=== PATIENT | female | born 1950 | race Caucasian/White ===

== ENCOUNTER 2023-11-06 12:11 | Inpatient (IN) | payer MEDICARE, OTHER, SELFPAY ==
[2023-11-06] VITALS (10 sets, daily range): BP systolic 103–165; BP diastolic 47–76; PULSE 81–104; RESP 16–28; TEMP 36.7–39.3; O2SAT 89–97; BMI 41.3; BMI 39.4
--- NOTE | 2023-11-06 12:25 | EX.ED.DYSGE1 ---
HPI History of Present Illness Chief Complaint: Complaint Detail of Chief Complaint: Dysuria Informant: patient Narrative Narrative: Patient presents with dysuria and frequency that started last evening. She states that she is visiting from [place] family here. She gets UTIs every few months. She has had no vomiting. She has had subjective fever and complains of chills. Denies abdominal pain. She does complain of some low back pain. [facility] Medical History (Updated 11/06/23 @ 15:41 by Margie Anderson) Anemia Chronic pain Former smoker GERD (gastroesophageal reflux disease) Hearing loss, left Hearing loss, right Hypertension Osteoporosis Home Medications carvedilol 12.5 mg tablet 12.5 mg PO DAILY 11/06/23 [History Last Taken 11/05/23] doxepin 10 mg capsule 10 mg PO QHS PRN sleep 11/06/23 [History Last Taken 11/05/23] duloxetine 60 mg capsule,delayed release 60 mg PO DAILY 11/06/23 [History Last Taken 11/05/23] furosemide 20 mg tablet 20 mg PO DAILY 11/06/23 [History Last Taken 11/05/23] gabapentin 800 mg tablet 800 mg PO Q12H 11/06/23 [History Last Taken 11/05/23] methocarbamol 750 mg tablet 750 mg PO Q8H PRN muscle spasm 11/06/23 [History Last Taken 11/05/23] nystatin 100,000 unit/gram topical cream 1 applic topical BID 11/06/23 [History Last Taken 11/05/23] oxycodone 10 mg tablet 10 mg PO Q4H PRN pain 11/06/23 [History Last Taken 11/05/23] pantoprazole 40 mg tablet,delayed release 40 mg PO QHS 11/06/23 [History Last Taken 11/05/23] pramipexole 0.25 mg tablet 0.25 mg PO BID 11/06/23 [History Last Taken 11/05/23] Allergy/AdvReac Type Severity Reaction Status Date / Time No Known Allergies Allergy Verified 11/06/23 12:14 Social History Smoking Status: Never smoker ROS ROS ED Review of Systems ROS Unobtainable: other Constitutional Constitutional ED: Reports chills, fever(s) and lethargy; Denies sweats or weight loss Eyes Eyes: Denies blurry vision, change in vision or diplopia ENT ENT ED: Denies rhinorrhea or sore throat Cardiovascular Cardiovascular: Denies chest pain, orthopnea or racing heartbeat Respiratory/Chest Respiratory/Chest: Denies cough, dyspnea, dyspnea on exertion, orthopnea or sputum Gastrointestinal Gastrointestinal: Denies abdominal pain, diarrhea, nausea or vomiting Genitourinary Genitourinary ED: Reports dysuria and urinary frequency; Denies hematuria Musculoskeletal Musculoskeletal: Denies arthralgias, back pain, myalgias or neck pain Integumentary Denies abscess, Abrasions or rash Neurologic Neurologic: Denies headache(s) or weakness Psychiatric Psychiatric: Denies anxiety, depression or suicidal thoughts Endocrine Endocrinology: Denies polydipsia, polyphagia or polyuria Hematologic/Lymphatic Hematologic/Lymphatic: Denies easy bleeding, easy bruising or lymphadenopathy Allergic/Immunologic Allergic/Immunologic ED: Denies mouth swelling, tongue swelling or urticaria EXAM Physical Exam Const Vital Signs: 11/06/23 12:12 11/06/23 12:42 11/06/23 12:42 Temperature 100 F H 102.8 F H 102.8 F H Temperature Source Temporal Oral Oral Pulse Rate 101 H 102 H 102 H Respiratory Rate 16 28 H 22 H Blood Pressure 165/59 H 129/69 H 129/69 H Blood Pressure Mean 94 89 89 Pulse Ox 97 97 97 Oxygen Delivery Method Room Air Room Air Room Air 11/06/23 13:40 11/06/23 13:40 Temperature 101.6 F H 101.6 F H Temperature Source Oral Oral Pulse Rate 104 H 103 H Respiratory Rate 23 H 27 H Blood Pressure 128/61 H 128/61 H Blood Pressure Mean 83 83 Pulse Ox 96 97 Oxygen Delivery Method Room Air Room Air Positive well nourished and well developed General Appearance ED: well developed and NAD HEENT Reports TM's clear and moist mucous membranes normocephalic and atraumatic; Negative for trauma or tenderness Tympanic Membrane ED: Yes TM's clear Eyes PERRL and EOMs intact bilaterally General Eye ED: Negative for pale conjunctiva or scleral icterus Neck no lymphadenopathy, supple and no JVD General: Negative for tenderness Chest Wall inspection of chest normal and palpation of chest normal Chest: Negative for tenderness Resp normal respiratory effort and clear to auscultation bilaterally Effort and Inspection: Negative for respiratory distress or pain with movement Auscultation: Negative for rhonchi, wheezes or diminished lung sounds Cardio regular rate, regular rhythm, S1 normal heart sound, S2 normal heart sound and no murmurs Peripheral Pulses: pulses 2+ throughout GI normal to inspection, nondistended, normoactive bowel sounds, soft to palpation, non-tender, non-distended and no masses Back/Spine no CVA tenderness and no thoracic nor lumbar tenderness Extremity normal to inspection General Extremety ED: Negative for edema General Extremity: Negative for edema Neuro oriented x3, CN's II-XII intact bilaterally, no sensory deficits noted and gait normal Sensorium / Orientation: awake, alert, oriented to person, oriented to place and oriented to time Motor Exam: strength 5/5 throughout and strength abnormal Psych mental status grossly normal Skin no rashes or lesions noted and no wounds MDM MDM MDM Narrative Medical decision making narrative: Patient presents with chills and rigors and urinary symptoms that started yesterday. Patient visiting from [place]. Patient presents with temp up to 102.8. IV line established. Blood cultures ordered as well as urine culture. CBC with differential white count 12.5 with hemoglobin 12.8 and platelet count of 211. Chemistries unremarkable. Urinalysis positive for 25-50 WBCs as well as +1 bacteria and positive nitrites and 500 excite esterase. COVID and flu testing also ordered. Patient was started on Rocephin 1 g IV. Lactate was elevated at 2.6. Will discuss case with hospitalist to evaluate for admission as I suspect patient may be bacteremic and early sepsis. Patient did receive a gram of Tylenol p.o. Lab Data Attestation: I reviewed the patient's lab results. Labs: Laboratory Results - last 24 hr 11/06/23 11/06/23 12:38 12:55 WBC 12.5 H RBC 4.45 Hgb 12.8 Hct 39.8 MCV 89.4 MCH 28.8 MCHC 32.2 RDW Std Deviation 45.3 H RDW Coeff of Shira 13.9 Plt Count 211 MPV 8.5 Immature Gran % (Auto) 0.600 Neut % (Auto) 85.4 H Lymph % (Auto) 9.6 L [place] % (Auto) 4.2 Eos % (Auto) 0.0 Baso % (Auto) 0.2 Absolute Neuts (auto) 10.7 H Absolute Lymphs (auto) 1.19 Nucleated RBC % 0 Sodium 136 Potassium 4.0 Chloride 104 Carbon Dioxide 29.0 Anion Gap 3 L BUN 21 H Creatinine 1.30 H Estim Creat Clear Calc 40.35 Est GFR (MDRD) Af Amer 51 L Est GFR (MDRD) Non-Af 42 L BUN/Creatinine Ratio 16.2 Glucose 175 H Lactic Acid 2.6 H* Calcium 9.0 Urine Color Yellow Urine Clarity Sl. Cloudy Urine pH 6.0 Ur Specific [place] 1.010 Urine Protein 100 H Urine Glucose (UA) Normal Urine Ketones Negative Urine Occult Blood 50 H Urine Nitrite Positive H Urine Bilirubin Negative Urine Urobilinogen Normal Ur Leukocyte Esterase 500 H Urine RBC 0-5 SEEN Urine WBC 25-50 SEEN Ur Squamous Epith Cells 0 SEEN Urine Bacteria 1+ Urine Mucus 0 SEEN Discharge Plan Dx/Rx/DC Orders Clinical Impression: Leukocytosis, Sepsis, Acute UTI, Acidosis, lactic Disposition Disposition: Acute Care [facility] Discharge Date/Time: 11/06/23 14:59
[2023-11-06] MEDS: 0.9% Normal Saline (1000mL) 1,000 ML 150 ML IV (12:38)
[2023-11-06 12:47] LABS: Absolute Lymphocyte Count 1.19 X10^3/uL (0.83-4.51); Absolute Neutrophil Count 10.7 X10^3/uL (2.0-7.7); Basophil# 0.02 X10^3/uL; Basophil% 0.2 % (0-1); Hematocrit 39.8 % (37-47); Hemoglobin 12.8 g/dL (12.0-15.0); Lymphocyte # 1.19 X10^3/ul (0.83-4.51); Lymphocyte % 9.6 % (19-41); Mean Corp Hgb Conc 32.2 g/dL (32-36); Mean Corpuscular Hgb 28.8 pg (27.0-32.0); Mean Corpuscular Volume 89.4 fL (81-99); Mean Platelet Vol. 8.5 fl (6.2-12.0); Monocyte# 0.52 X10^3/uL; Monocyte% 4.2 % (0-10); NRBC Flagged by Analyzer 0 % (0-5); Neutrophil # 10.66 X10^3/uL (2.7-7.7); Neutrophil % 85.4 % (47-70); Platelet Count 211 K/mm3 (150-450); RBC Distribution Width CV 13.9 % (11.6-14.6); RBC Distribution Width SD 45.3 fl (35.1-43.9); Red Blood Count 4.45 M/mm3 (4.2-5.4); White Blood Count 12.5 K/mm3 (4.4-11.0)
[2023-11-06] MEDS: Acetaminophen 500 MG Tablet 1000 MG PO (12:59)
[2023-11-06 13:00] LABS: Anion Gap 3 (5-15); BUN 21 mg/dL (7-18); BUN/Creat Ratio 16.2 RATIO (10-20); Chloride 104 mmol/L (98-107); EST Glomerular Filtration Rate 42 mL/min (>60); Est Glom Filt Rate - Afr Amer 51 mL/min (>60); Estimated Creatinine Clearance 40.35 ml/min; Glucose 175 mg/dL (74-106); Sodium Level 136 mmol/L (136-145)
[2023-11-06 13:04] LABS: Mucous, Urine 0 SEEN /hpf (<or=2+); Squamous Epithelial Cells - UA 0 SEEN /hpf (5-10)
[2023-11-06 13:05] LABS: Color, Urine Yellow (Yellow); Glucose, Dipstick Normal (Normal); Ketone-Dipstick Negative (Negative); Leukocyte Esterase-Dipstick 500 /ul (Negative); Nitrite-Dipstick Positive (Negative); Occult Blood-Urine 50 /ul (Negative); Protein-Dipstick 100 mg/dl (Negative); Urine Bilirubin Dipstick Negative (Negative); Urine Clarity Sl. Cloudy (Clear); Urine Urobilinogen Normal (Normal)
[2023-11-06 13:13] LABS: Bacteria 1+ /hpf (None Seen); Red Blood Cells-Urine 0-5 SEEN /hpf (0-5); White Blood Cells 25-50 SEEN /hpf (0-5)
[2023-11-06 13:44] LABS: Lactic Acid 2.6 mmol/L (0.4-1.9)
--- NOTE | 2023-11-06 13:45 | PCM.HP.STD ---
HPI - General General Date of Admission: 11/06/23 Date of Service: 11/06/23 Chief Complaint: Dysuria HPI Narrative CAROLEE GAMBOA, is a 73 F with past medical history of hypertension, multiple joint osteoarthritis who presents with dysuria since 1 day with associated chills and subjective fever. Her medications include carvedilol, doxepin, furosemide, gabapentin, methocarbamol, nystatin, oxycodone, pantoprazole, pramipexole. She and her are visiting their granddaughter in [place] from [place]. Most of her care is in [place]. Next they are headed to [place]. Since yesterday she has been noticing dysuria, and progressive fatigue. There is associated left-sided flank pain. She was also febrile when she presented to the ED. She was febrile in the ED with a temperature of 102.8 F, WBC is 12.5, hemoglobin 12.8, platelet 211, UA positive for 25-50 WBCs, positive nitrite and leuk esterase. Her BUN was 21, creatinine 1.3 her lactate was 2.6 and she is being admitted for concerns regarding urosepsis and bacteremia. [facility] Medical History (Updated 11/06/23 @ 15:41 by Margie Anderson) Anemia Chronic pain Former smoker GERD (gastroesophageal reflux disease) Hearing loss, left Hearing loss, right Hypertension Osteoporosis Home Medications carvedilol 12.5 mg tablet 12.5 mg PO DAILY 11/06/23 [History Last Taken 11/05/23] doxepin 10 mg capsule 10 mg PO QHS PRN sleep 11/06/23 [History Last Taken 11/05/23] duloxetine 60 mg capsule,delayed release 60 mg PO DAILY 11/06/23 [History Last Taken 11/05/23] furosemide 20 mg tablet 20 mg PO DAILY 11/06/23 [History Last Taken 11/05/23] gabapentin 800 mg tablet 800 mg PO Q12H 11/06/23 [History Last Taken 11/05/23] methocarbamol 750 mg tablet 750 mg PO Q8H PRN muscle spasm 11/06/23 [History Last Taken 11/05/23] nystatin 100,000 unit/gram topical cream 1 applic topical BID 11/06/23 [History Last Taken 11/05/23] oxycodone 10 mg tablet 10 mg PO Q4H PRN pain 11/06/23 [History Last Taken 11/05/23] pantoprazole 40 mg tablet,delayed release 40 mg PO QHS 11/06/23 [History Last Taken 11/05/23] pramipexole 0.25 mg tablet 0.25 mg PO BID 11/06/23 [History Last Taken 11/05/23] Allergy/AdvReac Type Severity Reaction Status Date / Time No Known Allergies Allergy Verified 11/06/23 12:14 Social History Smoking Status: Never smoker ROS Constitutional Constitutional: Reports fatigue, fever(s), malaise and night sweats Eyes Eyes: Denies blurry vision, change in eye color, change in vision, discharge from eye(s), double vision, erythema, eye pain, loss of vision or other ENT HEENT: Denies abnormal hearing, dysphagia, ear pain, epistaxis, headache(s), hearing loss, nasal congestion, nasal discharge, post nasal drip, sinus pressure, sore throat or other Cardiovascular Cardiovascular: Denies chest pain, claudication, dyspnea on exertion, edema, lightheadedness, orthopnea, palpitations, paroxysmal nocturnal dyspnea, rapid heart rate, syncope or other Respiratory/Chest Respiratory/Chest: Denies cough, dyspnea, excessive phlegm production, hemoptysis, productive cough, shortness of breath at rest, shortness of breath with exertion, wheezing or other Gastrointestinal Gastrointestinal: Denies abdominal pain, coffee ground emesis, constipation, diarrhea, dyspepsia, hematemesis, hematochezia, loose stools, melena, nausea, vomiting or other Genitourinary Genitourinary: Reports burning urination, difficulty urinating and dysuria Musculoskeletal Musculoskeletal: Reports arthralgias; Denies back pain, joint pain, joint stiffness, joint swelling, myalgias, neck pain or other Neurologic Neurologic: Denies abnormal gait, abnormal speech, confusion, disequilibrium, dizziness, focal weakness, headache(s), numbness, paresthesias, seizure-like activity, seizures, syncope, tingling, tremor(s) or other Psychiatric Psychiatric: Denies anxiety, depression, homicidal ideation, suicidal ideation or other Vital Signs Vital Signs Vital Signs: 11/06/23 12:12 11/06/23 12:42 11/06/23 12:42 Temperature 100 F H 102.8 F H 102.8 F H Temperature Source Temporal Oral Oral Pulse Rate 101 H 102 H 102 H Respiratory Rate 16 28 H 22 H Blood Pressure 165/59 H 129/69 H 129/69 H Blood Pressure Mean 94 89 89 Pulse Ox 97 97 97 Oxygen Delivery Method Room Air Room Air Room Air Weight Weight: 218 lb 11.177 oz Body Mass Index (BMI) 41.3 Results Lab / Micro Data 11/06/23 12:38 11/06/23 12:38 Labs: Laboratory Results - last 24 hr 11/06/23 12:38: WBC 12.5 H, RBC 4.45, Hgb 12.8, Hct 39.8, MCV 89.4, MCH 28.8, MCHC 32.2, RDW Std Deviation 45.3 H, RDW Coeff of Shira 13.9, Plt Count 211, MPV 8.5, Immature Gran % (Auto) 0.600, Neut % (Auto) 85.4 H, Lymph % (Auto) 9.6 L, [place] % (Auto) 4.2, Eos % (Auto) 0.0, Baso % (Auto) 0.2, Absolute Neuts (auto) 10.7 H, Absolute Lymphs (auto) 1.19, Nucleated RBC % 0, Sodium 136, Potassium 4.0, Chloride 104, Carbon Dioxide 29.0, Anion Gap 3 L, BUN 21 H, Creatinine 1.30 H, Estim Creat Clear Calc 40.35, Est GFR (MDRD) Af Amer 51 L, Est GFR (MDRD) Non-Af 42 L, BUN/Creatinine Ratio 16.2, Glucose 175 H, Lactic Acid 2.6 H*, Calcium 9.0 11/06/23 12:55: Urine Color Yellow, Urine Clarity Sl. Cloudy, Urine pH 6.0, Ur Specific [place] 1.010, Urine Protein 100 H, Urine Glucose (UA) Normal, Urine Ketones Negative, Urine Occult Blood 50 H, Urine Nitrite Positive H, Urine Bilirubin Negative, Urine Urobilinogen Normal, Ur Leukocyte Esterase 500 H, Urine RBC 0-5 SEEN, Urine WBC 25-50 SEEN, Ur Squamous Epith Cells 0 SEEN, Urine Bacteria 1+, Urine Mucus 0 SEEN Assessment & Plan Assessment/Plan (1) Acute UTI: PLAN: Plan 73-year-old female presents with concerns of dysuria, fever, left-sided abdominal pain since last Tuesday. She has a history of recurrent urinary tract infections in the past. Based on her clinical presentation, urinary findings, leukocytosis that she has having complicated UTI [high-grade fever, elevated lactate, decreased p.o. intake] 1. Complicated urinary tract infection likely pyelonephritis -Continue IV ceftriaxone 1 g daily, change as per the sensitivity from urine cultures and blood cultures -Encourage p.o. hydration -IV NS 100 cc/h for 8 hours -Ultrasound abdomen and kidneys to rule out any abscesses. Would avoid CT scan at this time given the SHADI. 2. Hypertension -Will hold Lasix for now, continue carvedilol with close monitoring 3. Severe osteoarthritis, shoulder replacement -Continue home analgesia 4. SHADI -Likely related to the infection and prerenal in physiology -Continue to monitor, LR infusion as above. 5. Chronic pain: Continue home opioid therapy
[2023-11-06] MEDS: Ceftriaxone 1 GM/50 ML BAG IV (13:57)
[2023-11-06] MEDS: Phenazopyridine 95 MG Tablet 190 MG PO (13:57)
[2023-11-06] MEDS: oxyCODONE 5 MG Tablet 10 MG PO ×2 (15:56→22:41)
[2023-11-06] MEDS: Methocarbamol 750 MG Tablet PO (15:56)
[2023-11-06] MEDS: Lactated Ringers 1,000 ML 100 ML IV (16:12)
[2023-11-06] MEDS: Pramipexole Di-HCl 0.25 MG Tablet PO ×2 (16:18→22:41)
[2023-11-06] MEDS: Gabapentin 800 MG Tablet PO ×2 (16:18→22:42)
[2023-11-06 16:42] LABS: Reflex Lactate? Y
[2023-11-06 18:30] LABS: Lactic Acid 1.3 mmol/L (0.4-1.9)
[2023-11-06] MEDS: Pantoprazole Sodium 40 MG Tablet PO (22:41)
[2023-11-07] MEDS: Lactated Ringers 1,000 ML 100 ML IV ×2 (00:53→11:07)
[2023-11-07 00:55] VITALS: TEMP 37.6
[2023-11-07 04:00] VITALS: BP 129/59; PULSE 108; RESP 18; TEMP 39; O2SAT 96
[2023-11-07] MEDS: Vancomycin HCl 1,500 MG in 0.9% Normal Saline (500mL Bag) 500 ML 250 MG IV (05:18)
[2023-11-07] MEDS: Piperacil/Tazobactam 3.375 GM in 0.9% Normal Saline (50mL MB+) 50 ML IV ×3 (05:49→21:46)
[2023-11-07] MEDS: 0.9% Normal Saline (250mL Bag) 250 ML 15 ML IV (05:49)
--- NOTE | 2023-11-07 06:00 | US_ITS ---
HISTORY: Suspected pyelonephritis vs abscess. TECHNIQUE: Daniels scale and color doppler images were obtained of the kidneys. 58 images. COMPARISON: None. FINDINGS: RIGHT KIDNEY: 10.3 cm in length with a cortical thickness of 1.3 cm. Contour and echogenicity unremarkable. No hydronephrosis. No gross renal mass demonstrated. LEFT KIDNEY: 10.5 cm in length with a cortical thickness of 1.5 cm. Contour and echogenicity unremarkable. No hydronephrosis. No gross renal mass demonstrated. URINARY BLADDER: Unremarkable at 65 cc with a 5 mm wall thickness. Bilateral ureteral jets visualized. US/Kidney and Bladder IMPRESSION: Unremarkable examination of the kidneys. Electronically Signed: Amrita Fox MD at 8:43 EST ,
--- NOTE | 2023-11-07 06:03 | PCM.RX.CS ---
Consult Antibiotic Management Pharmacy has been consulted to manage selected antibiotic: Vancomycin Type of Intervention Type of Consult: New start Suspected Infection Suspected Infection: Bacteremia Microbiology Microbiology: Microbiology 11/06/23 12:38 Blood Culture (Wb) - Anticubital Left Blood Culture - Preliminary 11/06/23 12:38 Mucosa - Nose SARS-CoV-2, Influenza & RSV (PCR) - Final Dosing Weight Weight used for dosin.8 kg Estimated Creatinine Clearance Estimated Creatinine Clearance: 40 Goal Trough Goal Trough: 10-15 mcg/mL Pharmacy Plan for Drug Dosing Pharmacy Plan for Drug Dosing: Pharmacy Service will continue to monitor and adjust dosing as required. Follow-Up Labs Follow-Up Labs: Trough: Vancomycin Date/Time Labs Ordered Labs to be done on [date and time ordered]: 11/09/23 @0500
[2023-11-07 06:17] LABS: Absolute Lymphocyte Count 1.22 X10^3/uL (0.83-4.51); Absolute Neutrophil Count 12.5 X10^3/uL (2.0-7.7); Basophil# 0.04 X10^3/uL; Basophil% 0.3 % (0-1); Eosinophil# 0.01 X10^3/uL; Eosinophils% 0.1 % (0-5); Hematocrit 35.1 % (37-47); Hemoglobin 11.2 g/dL (12.0-15.0); Lymphocyte # 1.22 X10^3/ul (0.83-4.51); Lymphocyte % 8.3 % (19-41); Mean Corp Hgb Conc 31.9 g/dL (32-36); Mean Corpuscular Hgb 28.6 pg (27.0-32.0); Mean Corpuscular Volume 89.8 fL (81-99); Mean Platelet Vol. 9.6 fl (6.2-12.0); Monocyte# 0.89 X10^3/uL; NRBC Flagged by Analyzer 0 % (0-5); Neutrophil # 12.46 X10^3/uL (2.7-7.7); Neutrophil % 84.4 % (47-70); Platelet Count 197 K/mm3 (150-450); RBC Distribution Width CV 14.1 % (11.6-14.6); RBC Distribution Width SD 45.9 fl (35.1-43.9); Red Blood Count 3.91 M/mm3 (4.2-5.4); White Blood Count 14.8 K/mm3 (4.4-11.0)
[2023-11-07 06:34] LABS: International Normalized Ratio 1.2; Prothrombin Time (Protime)PT. 15.6 SECONDS (11.7-14.9)
[2023-11-07 07:01] LABS: ALB/GLOB Ratio 0.6 RATIO (0.9-2.4); AST(SGOT) 16 U/L (15-37); Alanine Aminotransfer ALT/SGPT 20 U/L (13-56); Albumin, Serum 2.7 g/dL (3.2-5.0); Alkaline Phosphatase 78 U/L (45-117); Anion Gap 6 (5-15); BUN 20 mg/dL (7-18); BUN/Creat Ratio 19.2 RATIO (10-20); Bilirubin, Direct 0.22 mg/dL (0.00-0.30); Calcium,Total 8.9 mg/dL (8.5-10.1); Chloride 105 mmol/L (98-107); Creatinine, Serum 1.04 mg/dL (0.55-1.02); EST Glomerular Filtration Rate 55 mL/min (>60); Est Glom Filt Rate - Afr Amer 66 mL/min (>60); Estimated Creatinine Clearance 49.14 ml/min; Globulin 4.2 g/dL (2.2-4.2); Glucose 164 mg/dL (74-106); Magnesium 2.1 mg/dL (1.6-2.6); Phosphorus 2.3 mg/dL (2.5-4.9); Potassium 3.5 mmol/L (3.5-5.1); Protein, Total 6.9 g/dL (6.4-8.2); Sodium Level 137 mmol/L (136-145)
[2023-11-07 10:00] VITALS: BP 121/67; PULSE 78; RESP 16; TEMP 36.9; O2SAT 93
[2023-11-07] MEDS: Gabapentin 800 MG Tablet PO ×2 (11:06→21:50)
[2023-11-07] MEDS: Nystatin Ointment 1 APPLIC TOPICAL ×2 (11:06→21:45)
[2023-11-07] MEDS: Pramipexole Di-HCl 0.25 MG Tablet PO ×2 (11:06→21:45)
[2023-11-07] MEDS: oxyCODONE 5 MG Tablet 10 MG PO ×3 (11:06→20:24)
[2023-11-07] MEDS: Carvedilol 12.5 MG Tablet PO (11:06)
[2023-11-07 11:45] LABS: Hemoglobin A1c 6.5 % (3.8-5.6)
--- NOTE | 2023-11-07 11:50 | CASEMGMT ---
RN CM Face to Face with patient for initial transition planning/care coordination assessment. RN CM introduced self and role at [facility]. Patient sitting in chair, alert and oriented. Patient willing to participate in assessment and is able to answer all questions appropriately. Care providers, pharmacy, and demographics verified. Patient wishes to discharge home, denies need for home health at this time. Patient states she has no further needs or concerns at this time. CM to follow for discharge planning needs that may arise. PCP: Sharon Del Castillo Specialists: none Preferred Pharmacy: [facility] [employer], [facility] Insurance: Sandra RODRIGUEZ Prescription Benefit: AARLenin Living Will/HPOA: yes, Khris Morrell LNOK: Living Arrangements: Patient is visiting area and currently staying at [facility]. Plan is for patient to fly back to [place] to stay with daughter till December and then travel back to [place]. Transportation: DME/HHC: Patient has walker and pulse ox. Will monitor for home oxygen, prefers [employer] if needed. Disposition Plan: Patient to discharge with family support and follow-up plans in place. Ashlyn KING, RN, CM
--- NOTE | 2023-11-07 15:20 | PN.HOSP_ITS ---
Reason for Visit Reason for Visit: Diagnoses Urinary tract infection, site not specified (11/06/23) Subjective Subjective Patient admitted yesterday afternoon for suspected complicated urinary tract infection. Patient was started on ceftriaxone on admission, had significant fevers overnight and was broadened to vancomycin and Zosyn by overnight provider. Patient seen at bedside this morning. Patient was sitting up comfortably in bed, no acute distress. Patient was making appropriate eye contact and answering most of my questions appropriately, but she did appear confused at several points throughout our discussion. She reported feeling fatigued but otherwise denies any significant pain or discomfort. States she did have subjective fevers and chills overnight, has not had any this morning though. No other acute concerns at this time. Objective Data Objective Data Vital Signs: Vital Signs Temp Pulse Resp BP Pulse Ox O2 Del Method O2 Flow Rate 98.5 F 78 16 121/67 H 93 Nasal Cannula 2 11/07/23 10:00 11/07/23 10:00 11/07/23 10:00 11/07/23 10:00 11/07/23 10:00 11/07/23 10:00 11/07/23 10:57 Oxygen Flow Rate (L/min) 2 Oxygen Delivery Method Nasal Cannula Weight: 94.8 kg Body Mass Index (BMI) 39.4 Intake & Output: Intake and Output for Last 24 Hours 11/05/23 11/06/23 11/07/23 23:59 23:59 23:59 Intake Total 1900 / 2150 3398.33 / 3398.33 Balance 1900 / 2150 3398.33 / 3398.33 Lab / Micro Data 11/07/23 05:14 11/07/23 05:14 Labs: Laboratory Results - last 24 hr 11/06/23 17:45: Lactic Acid 1.3 11/07/23 05:14: WBC 14.8 H, RBC 3.91 L, Hgb 11.2 L, Hct 35.1 L, MCV 89.8, MCH 28.6, MCHC 31.9 L, RDW Std Deviation 45.9 H, RDW Coeff of Shira 14.1, Plt Count 197, MPV 9.6, Immature Gran % (Auto) 0.900, Neut % (Auto) 84.4 H, Lymph % (Auto) 8.3 L, [place] % (Auto) 6.0, Eos % (Auto) 0.1, Baso % (Auto) 0.3, Absolute Neuts (auto) 12.5 H, Absolute Lymphs (auto) 1.22, Nucleated RBC % 0, PT 15.6 H, INR 1.2, Sodium 137, Potassium 3.5, Chloride 105, Carbon Dioxide 26.0, Anion Gap 6, BUN 20 H, Creatinine 1.04 H, Estim Creat Clear Calc 49.14, Est GFR (MDRD) Af Amer 66, Est GFR (MDRD) Non-Af 55 L, BUN/Creatinine Ratio 19.2, Glucose 164 H, Hemoglobin A1c 6.5 H, Calcium 8.9, Phosphorus 2.3 L, Magnesium 2.1, Total Bilirubin 0.50, Direct Bilirubin 0.22, AST 16, ALT 20, Alkaline Phosphatase 78, Total Protein 6.9, Albumin 2.7 L, Globulin 4.2, Albumin/Globulin Ratio 0.6 L Micro: Microbiology 11/06/23 12:38 Blood Culture (Wb) - Anticubital Left Blood Culture - Preliminary GNR lactose strike 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 coli 11/06/23 12:38 Mucosa - Nose SARS-CoV-2, Influenza & RSV (PCR) - Final Radiography Diagnostic Testing: Radiology Impression Renal Ultrasound 11/07/23 06:00 IMPRESSION: Unremarkable examination of the kidneys. Electronically Signed: Amrita Fox MD at 8:43 EST Reading Location ID and State: [address] [place] [address] Tel , Service support , Physical Exam Const alert, oriented x3 and no apparent distress Constitutional Narrative: Pleasant elderly female, obese, fatigued appearing, answering most questions a ppropriately but seemed confused at various points during our conversation, otherwise sitting up comfortably in bed, in no acute distress. General Appearance: cooperative and comfortable HEENT normocephalic, head/scalp atraumatic, hearing grossly normal bilaterally and nasal mucous membranes and turbinates normal Eyes PERRL, EOMs intact bilaterally and conjunctivae normal Neck full ROM, no lymphadenopathy and supple Lymph Lymphatic: no lymphadenopathy noted Chest inspection of chest normal Resp normal respiratory effort, normal air movement, no use of accessory muscles and clear to auscultation bilaterally Cardio regular rate, regular rhythm, no murmurs and peripheral pulses 2+ throughout GI normal to inspection, nondistended, normoactive bowel sounds, soft to palpation, non-tender and non-distended Back/Spine normal ROM Extremity normal to inspection, full ROM and no pedal edema Skin no rashes or lesions noted Neuro no focal motor deficits and no sensory deficits noted Speech: speech normal Assessment & Plan Assessment/Plan (1) Sepsis: (2) Acute UTI: (3) Gram-negative bacteremia: PLAN: Plan Patient is a 73-year-old female who presented to [facility] ED on 11/06/2023 with fevers/chills and dysuria. 1. Sepsis without shock, gram-negative bacteremia secondary to uncomplicated UTI Febrile to 102.8F, tachycardic, tachypneic, leukocytosis, elevated lactic acid, mild creatinine elevation on admit with presumed urinary source. UA showed 500 leukocyte esterase, positive nitrates, 1+ bacteria. Renal ultrasound with no evidence of hydronephrosis. Blood cultures and urine culture from 11/06 positive for present of E. coli, sensitivities pending. Lactic acid improved with IV fluids on admit. ? Continue Zosyn for now, narrow as able. Will plan for 10 to 14-day course of antibiotics. 2. Suspected SHADI, improving Creatinine 1.30 on admit, baseline creatinine unknown. Presumed prerenal in setting of sepsis as noted above. Renal ultrasound with no evidence of obstruction as noted above. ? Improving, creatinine 1.04 on 11/07. Adequate urine output. Trend daily BMP and urine output. 3. Mild debility ? Lives with in [place], here visiting family. PT/OT/case management c onsulted. Recommendation is for home with home health care as needed, patient planning to go home to [place] and can follow-up with outpatient physical therapy as needed. Chronic medical conditions: ? Hypertension: Continue home carvedilol, holding home Lasix for now, restart when able. ? History of severe osteoarthritis s/p shoulder replacement and chronic pain: Continue home opiate therapy, gabapentin, duloxetine. ? Obesity: BMI 39 on admit. Complicates hospital course, care and prognosis. ? Insomnia, RLS: Continue home doxepin, pramipexole. ? GERD: Continue home PPI. DVT prophylaxis: Lovenox CODE STATUS: Full code, verified Expected disposition: Home, 1 to 2 days Total clinical time spent by myself addressing the patient's medical issues, reviewing all the data, and collaborating with patient's care team: 35 minutes. Charges/Coding Visit Charges Inpatient E&M: 51532 Subs Hosp L2
[2023-11-07 16:00] VITALS: BP 132/72; PULSE 69; RESP 18; TEMP 36.8; O2SAT 94
--- NOTE | 2023-11-07 16:25 | CHAPLAIN ---
Type of Pastoral Visit _x__ Initial Visit ___ Follow-up Visit ___ On-call Visit ___ General Patient Visit ___ Spiritual Assessment ___ Family Conference ___ Bereavement ___ Rapid Response ___ Code Blue ___ Other (describe below) Pastoral Care Referral From _x__ Patient ___ Family ___ Nurse ___ Physician ___ Pivot End Polisher ___ Fluid Pump Operator ___ Other (describe below) Sacrament/Intervention _x__ Active listening ___ Anointing ___ Hindu ___ Bereavement ___ Communion ___ Tiffany exploration ___ _x__ Life review _x__ Prayer ___ Reconciliation ___ Sacrament of Sick _x__ Supportive presence ___ Wedding ___ Other (describe below) Pastoral Comments initially the patient talks about her disappointment in not being able to go today to [place] as planned; pt lives in [place] and was visiting family in [place] and was to go to [place] from here; pt speaks of family, of many good things in her life, her appreciation for great care here in hospital; pt welcomes a prayer for her support and expresses thanks for the spiritual care visit
[2023-11-07 20:19] VITALS: BP 129/80; PULSE 87; RESP 15; TEMP 37.1; O2SAT 95
[2023-11-07 21:00] VITALS: RESP 15; O2SAT 94
[2023-11-07] MEDS: Pantoprazole Sodium 40 MG Tablet PO (21:44)
[2023-11-08] VITALS (8 sets, daily range): BP systolic 125–147; BP diastolic 65–78; PULSE 69–90; RESP 15–18; TEMP 36.8–37.4; O2SAT 87–98
[2023-11-08] MEDS: Piperacil/Tazobactam 3.375 GM in 0.9% Normal Saline (50mL MB+) 50 ML IV ×2 (06:11→13:34)
[2023-11-08 06:55] LABS: Hematocrit 33.6 % (37-47); Hemoglobin 10.4 g/dL (12.0-15.0); Mean Corpuscular Hgb 28.4 pg (27.0-32.0); Mean Corpuscular Volume 91.8 fL (81-99); Mean Platelet Vol. 9.6 fl (6.2-12.0); Platelet Count 188 K/mm3 (150-450); RBC Distribution Width CV 14.1 % (11.6-14.6); RBC Distribution Width SD 47.6 fl (35.1-43.9); Red Blood Count 3.66 M/mm3 (4.2-5.4); White Blood Count 10.8 K/mm3 (4.4-11.0)
[2023-11-08 07:48] LABS: Anion Gap 6 (5-15); BUN 16 mg/dL (7-18); BUN/Creat Ratio 14.7 RATIO (10-20); Calcium,Total 8.9 mg/dL (8.5-10.1); Chloride 105 mmol/L (98-107); Creatinine, Serum 1.09 mg/dL (0.55-1.02); EST Glomerular Filtration Rate 52 mL/min (>60); Est Glom Filt Rate - Afr Amer 63 mL/min (>60); Estimated Creatinine Clearance 46.89 ml/min; Glucose 131 mg/dL (74-106); Potassium 3.8 mmol/L (3.5-5.1); Sodium Level 137 mmol/L (136-145)
[2023-11-08] MEDS: Pramipexole Di-HCl 0.25 MG Tablet PO ×2 (10:26→21:24)
[2023-11-08] MEDS: Gabapentin 800 MG Tablet PO ×2 (10:26→21:28)
[2023-11-08] MEDS: Enoxaparin 40 MG/0.4 ML Syringe SC (10:26)
[2023-11-08] MEDS: Carvedilol 12.5 MG Tablet PO (10:26)
--- NOTE | 2023-11-08 15:17 | PCM.PN.HOSP ---
Reason for Visit Reason for Visit: Diagnoses Sepsis, unspecified organism (11/06/23) Urinary tract infection, site not specified (11/06/23) Bacteremia (11/06/23) Subjective Subjective No acute events overnight. Patient seen at bedside this morning, present. Patient was sitting up comfortably in bed, conversing normally, no acute distress. Patient appeared more awake and alert this morning than yesterday. She did not have any confusion with our conversation today. She states she has been up and walking around the room without issue this morning. She has been wearing 2 L supplemental oxygen full-time, denies any shortness of breath at rest or with exertion. Reports good urine output, no pain or discomfort with urination. Denies any other general pain or discomfort. No other acute concerns this time. Objective Data Objective Data Vital Signs: Vital Signs Temp Pulse Resp BP Pulse Ox O2 Del Method O2 Flow Rate 99.2 F H 77 18 127/65 H 98 Nasal Cannula 2 11/08/23 14:56 11/08/23 14:56 11/08/23 14:56 11/08/23 14:56 11/08/23 14:56 11/08/23 14:56 11/08/23 14:56 Oxygen Flow Rate (L/min) 2 Oxygen Delivery Method Nasal Cannula Weight: 94.8 kg Body Mass Index (BMI) 39.4 Intake & Output: Intake and Output for Last 24 Hours 11/06/23 11/07/23 11/08/23 23:59 23:59 23:59 Intake Total 1900 / 2150 4410.00 / 4610.00 650 / 650 Balance 1900 / 2150 4410.00 / 4610.00 650 / 650 Lab / Micro Data 11/08/23 06:20 11/08/23 06:20 Labs: Laboratory Results - last 24 hr 11/08/23 06:20: WBC 10.8, RBC 3.66 L, Hgb 10.4 L, Hct 33.6 L, MCV 91.8, MCH 28.4, MCHC 31.0 L, RDW Std Deviation 47.6 H, RDW Coeff of Shira 14.1, Plt Count 188, MPV 9.6, Sodium 137, Potassium 3.8, Chloride 105, Carbon Dioxide 26.0, Anion Gap 6, BUN 16, Creatinine 1.09 H, Estim Creat Clear Calc 46.89, Est GFR (MDRD) Af Amer 63, Est GFR (MDRD) Non-Af 52 L, BUN/Creatinine Ratio 14.7, Glucose 131 H, Calcium 8.9 Micro: Microbiology 11/06/23 12:38 Blood Culture (Wb) - Anticubital Left Blood Culture - Final Escherichia coli 11/06/23 12:55 Urine, Clean Catch Urine Culture - Final Presumptive E. coli 11/06/23 12:38 Mucosa - Nose SARS-CoV-2, Influenza & RSV (PCR) - Final Physical Exam Const alert, oriented x3 and no apparent distress Constitutional Narrative: Pleasant elderly female, obese, fatigued appearing but improved from yesterday, sitting up comfortably in bed, conversing normally, no acute distress. General Appearance: cooperative and comfortable HEENT normocephalic, head/scalp atraumatic, hearing grossly normal bilaterally and nasal mucous membranes and turbinates normal Eyes PERRL, EOMs intact bilaterally and conjunctivae normal Neck full ROM, no lymphadenopathy and supple Lymph Lymphatic: no lymphadenopathy noted Chest inspection of chest normal Resp normal respiratory effort, normal air movement, no use of accessory muscles and clear to auscultation bilaterally Cardio regular rate, regular rhythm, no murmurs and peripheral pulses 2+ throughout GI normal to inspection, nondistended, normoactive bowel sounds, soft to palpation, non-tender and non-distended Back/Spine normal ROM Extremity normal to inspection, full ROM and no pedal edema Skin no rashes or lesions noted Neuro no focal motor deficits and no sensory deficits noted Speech: speech normal Psych affect normal Assessment & Plan Assessment/Plan (1) Sepsis: (2) Acute UTI: (3) Gram-negative bacteremia: PLAN: Plan Patient is a 73-year-old female who presented to [facility] ED on 11/06/2023 with fevers/chills and dysuria. 1. Sepsis without shock, gram-negative bacteremia secondary to uncomplicated UTI Febrile to 102.8F, tachycardic, tachypneic, leukocytosis, elevated lactic acid, mild creatinine elevation on admit with presumed urinary source. UA showed 500 leukocyte esterase, positive nitrates, 1+ bacteria. Renal ultrasound with no evidence of hydronephrosis. Blood cultures and urine culture from 11/06 positive for present of E. coli, pansensitive. Lactic acid improved with IV fluids on admit. ? De-escalated from Zosyn to IV ceftriaxone on 11/08. Will plan to transition to p.o. cefdinir tomorrow with plan for 10-day course of antibiotics total, stop date 11/15. 2. Suspected SHADI, improved Creatinine 1.30 on admit, baseline creatinine unknown. Presumed prerenal in setting of sepsis as noted above. Renal ultrasound with no evidence of obstruction as noted above. ? Improving, creatinine 1.09 on 11/08. Adequate urine output. Okay to discontinue daily BMP checks. 3. Mild debility ? Lives with in [place], here visiting family. PT/OT/case management consulted. Planning for home with no needs on discharge. Patient will be flying to [place] with her after this hospitalization to be with family and stated she can follow-up with outpatient physical therapy there as needed. Chronic medical conditions: ? Hypertension: Continue home carvedilol, holding home Lasix for now, will plan to restart on discharge. ? History of severe osteoarthritis s/p shoulder replacement and chronic pain: Continue home opiate therapy, gabapentin, duloxetine. ? Obesity: BMI 39 on admit. Complicates hospital course, care and prognosis. ? Insomnia, RLS: Continue home doxepin, pramipexole. ? GERD: Continue home PPI. DVT prophylaxis: Lovenox CODE STATUS: Full code, verified Expected disposition: Home, 1 to 2 days Total clinical time spent by myself addressing the patient's medical issues, reviewing all the data, and collaborating with patient's care team: 35 minutes. Charges/Coding Visit Charges Inpatient E&M: 93897 Subs Hosp L2
[2023-11-08] MEDS: Ceftriaxone 1 GM/50 ML BAG IV (15:54)
[2023-11-08] MEDS: 0.9% Normal Saline (250mL Bag) 250 ML 15 ML IV (17:32)
[2023-11-08] MEDS: Loperamide 2 MG Capsule PO (18:42)
[2023-11-08] MEDS: oxyCODONE 5 MG Tablet 10 MG PO (19:21)
[2023-11-08] MEDS: Pantoprazole Sodium 40 MG Tablet PO (21:23)
[2023-11-09 03:56] VITALS: BP 150/70; PULSE 81; RESP 15; TEMP 36.8; O2SAT 97
[2023-11-09 05:39] VITALS: TEMP 37
[2023-11-09 07:01] VITALS: O2SAT 94
[2023-11-09 07:26] VITALS: BP 128/63; PULSE 77; RESP 14; TEMP 37.1; O2SAT 98
[2023-11-09 08:11] LABS: Hemoglobin 10.5 g/dL (12.0-15.0); Mean Corp Hgb Conc 31.8 g/dL (32-36); Mean Corpuscular Hgb 28.2 pg (27.0-32.0); Mean Corpuscular Volume 88.7 fL (81-99); Mean Platelet Vol. 9.8 fl (6.2-12.0); Platelet Count 216 K/mm3 (150-450); RBC Distribution Width CV 13.7 % (11.6-14.6); RBC Distribution Width SD 44.5 fl (35.1-43.9); Red Blood Count 3.72 M/mm3 (4.2-5.4); White Blood Count 8.2 K/mm3 (4.4-11.0)
[2023-11-09 08:39] LABS: Anion Gap 19 (5-15); BUN 13 mg/dL (7-18); BUN/Creat Ratio 14.1 RATIO (10-20); Calcium,Total 8.9 mg/dL (8.5-10.1); Chloride 104 mmol/L (98-107); Creatinine, Serum 0.92 mg/dL (0.55-1.02); EST Glomerular Filtration Rate 63 mL/min (>60); Est Glom Filt Rate - Afr Amer 76 mL/min (>60); Estimated Creatinine Clearance 55.55 ml/min; Glucose 91 mg/dL (74-106); Potassium 3.4 mmol/L (3.5-5.1); Sodium Level 134 mmol/L (136-145)
[2023-11-09] MEDS: Gabapentin 800 MG Tablet PO (09:37)
[2023-11-09] MEDS: Enoxaparin 40 MG/0.4 ML Syringe SC (09:38)
[2023-11-09] MEDS: Carvedilol 12.5 MG Tablet PO (09:38)
[2023-11-09] MEDS: Pramipexole Di-HCl 0.25 MG Tablet PO (09:38)
[2023-11-09] MEDS: Ceftriaxone 1 GM/50 ML BAG IV (09:39)
[2023-11-09] MEDS: 0.9% Saline Lock 10 ML Syringe IV (09:39)
[2023-11-09 10:19] VITALS: O2SAT 90; O2SAT 98
[2023-11-09] MEDS: oxyCODONE 5 MG Tablet 10 MG PO (11:08)
--- NOTE | 2023-11-09 11:12 | DCINST_ITS ---
Discharge Instructions Diet Discharge Diet: No restrictions Activity Discharge Activity: No Restrictions Weight Bearing Status: Full weight bearing Follow Up Care Test Results: Test results from this visit will be discussed in further detail at your follow- up appointment, if applicable. Discharge Plan Admission Admit Date/Time: 11/06/23 14:05 Primary Reason for Your Visit: fevers/chills, pain with urination Attending Provider: Caleb Locke Primary Care Provider: SHIRLEY MCNULTY Consulting Providers: Bhavik Haque Instructions Additional Instructions / Restrictions: Complete antibiotic course for your UTI as noted below. Follow-up with physical therapy in [place] and follow-up with your primary doctors back [place] as needed. Discharge Orders/Prescriptions Prescriptions: New cefdinir 300 mg capsule 300 mg PO BID 6 Days Qty: 12 0RF Continued carvedilol 12.5 mg tablet 12.5 mg PO DAILY doxepin 10 mg capsule 10 mg PO QHS PRN (Reason: sleep) duloxetine 60 mg capsule,delayed release(DR/EC) 60 mg PO DAILY Patient Comments: TAKE 1 CAPSULE BY MOUTH DAILY gabapentin 800 mg tablet 800 mg PO Q12H oxycodone 10 mg tablet 10 mg PO Q4H PRN (Reason: pain) Patient Comments: TAKE 1 TABLET BY MOUTH EVERY 4 HOURS NEEDED FOR PAIN furosemide 20 mg tablet 20 mg PO DAILY pramipexole 0.25 mg tablet 0.25 mg PO BID Patient Comments: TAKE 1 TABLET BY MOUTH TWICE DAILY pantoprazole 40 mg tablet,delayed release (DR/EC) 40 mg PO QHS Patient Comments: TAKE ONE TABLET BY MOUTH EVERY NIGHT AT BEDTIME nystatin 100,000 unit/gram cream 1 applic TOPICAL BID Patient Comments: APPLY TOPICALLY TO THE AFFECTED AREA DAILY NEEDED methocarbamol 750 mg tablet 750 mg PO Q8H PRN (Reason: muscle spasm) Patient Comments: TAKE 1 TABLET BY MOUTH THREE TIMES DAILY NEEDED FOR MUSCLE SPASMS Referrals / Follow Up: SHIRLEY MCNULTY [[facility]] [facility] Doctor,Out of [Non-Staff] - Disposition Disposition (needs filled in before D/C Order can be placed): Home, Self Care
--- NOTE | 2023-11-09 11:14 | DS.PCM_ITS ---
Providers Date of Admission: 11/06/23 Date of Discharge: 11/09/23 Primary Care Physician: SHIRLEY MCNULTY Reason For Visit: UTI, SEPSIS, LACTIC ACIDOSIS, LEUDOCYTOSIS Diagnosis Discharge Diagnosis (1) Sepsis: Status: Acute Code(s): A41.9 - Sepsis, unspecified organism (2) Acute UTI: Status: Acute Code(s): N39.0 - Urinary tract infection, site not specified (3) Gram-negative bacteremia: Status: Acute Code(s): R78.81 - Bacteremia Medications at Discharge Home Medications carvedilol 12.5 mg tablet 12.5 mg PO DAILY 11/06/23 doxepin 10 mg capsule 10 mg PO QHS PRN sleep 11/06/23 duloxetine 60 mg capsule,delayed release 60 mg PO DAILY 11/06/23 furosemide 20 mg tablet 20 mg PO DAILY 11/06/23 gabapentin 800 mg tablet 800 mg PO Q12H 11/06/23 methocarbamol 750 mg tablet 750 mg PO Q8H PRN muscle spasm 11/06/23 nystatin 100,000 unit/gram topical cream 1 applic topical BID 11/06/23 oxycodone 10 mg tablet 10 mg PO Q4H PRN pain 11/06/23 pantoprazole 40 mg tablet,delayed release 40 mg PO QHS 11/06/23 pramipexole 0.25 mg tablet 0.25 mg PO BID 11/06/23 cefdinir 300 mg capsule 300 mg PO BID 6 days #12 caps 11/09/23 Hospital Course Operations None Procedures EKG and - (Renal ultrasound) Summary of Care Provided Minutes Spent on Discharge: 35 Hospital Course: Patient is a 73-year-old female who presented to [facility] ED on 11/06/2023 with fevers/chills and dysuria. Hospital course as noted below. Patient discharged home in stable condition on 11/09. 1. Sepsis without shock, gram-negative bacteremia secondary to uncomplicated UTI Febrile to 102.8F, tachycardic, tachypneic, leukocytosis, elevated lactic acid, mild creatinine elevation on admit with presumed urinary source. UA showed 500 leukocyte esterase, positive nitrates, 1+ bacteria. Renal ultrasound with no evidence of hydronephrosis. Blood cultures and urine culture from 11/06 positive for present of E. coli, pansensitive. Lactic acid improved with IV fluids on admit. ? De-escalated from Zosyn to IV ceftriaxone on 11/08. Discharged on p.o. cefdinir with plan to complete 10-day course of antibiotics total, stop date 11/15. 2. Suspected SHADI, improved Creatinine 1.30 on admit, baseline creatinine unknown. Presumed prerenal in setting of sepsis as noted above. Renal ultrasound with no evidence of obstruction as noted above. ? Improved, creatinine 1.09 on 11/08. Adequate urine output. 3. Mild debility ? Lives with in [place], here visiting family. PT/OT/case management followed. Okay for discharge home with no needs. Patient will be flying to [place] with her after this hospitalization to be with family and stated she can follow-up with outpatient physical therapy there as needed. 4. Mild hypoxia with exertion, resolved; heavy cigarette smoking history with suspected COPD ? Patient with hypoxia into the mid 80s with exertion during hospitalization. Clear breath sounds, no pneumonia type symptoms. Did not have any chest imaging done. Has reported ~50-60 pack year smoking history, quit in 2019. Completed O2 ambulatory test on day of discharge, maintained O2 saturations > 90% with exertion. Recommend outpatient follow up for suspected COPD. Chronic medical conditions: ? Hypertension: Continue home carvedilol, home Lasix held during hospitalization, okay to restart on discharge. ? History of severe osteoarthritis s/p shoulder replacement and chronic pain: Continue home opiate therapy, gabapentin, duloxetine. ? Obesity: BMI 39 on admit. Complicates hospital course, care and prognosis. ? Insomnia, RLS: Continue home doxepin, pramipexole. ? GERD: Continue home PPI. Total clinical time spent by myself addressing the patient's discharge needs: 35 minutes. Physical Exam Const alert, oriented x3 and no apparent distress Constitutional Narrative: Pleasant elderly female, obese, sitting up comfortably in bed, conversing normally, no acute distress. General Appearance: cooperative and comfortable HEENT normocephalic, head/scalp atraumatic, hearing grossly normal bilaterally and nasal mucous membranes and turbinates normal Eyes PERRL, EOMs intact bilaterally and conjunctivae normal Neck full ROM, no lymphadenopathy and supple Lymph Lymphatic: no lymphadenopathy noted Chest inspection of chest normal Resp normal respiratory effort, normal air movement, no use of accessory muscles and clear to auscultation bilaterally Cardio regular rate, regular rhythm, no murmurs and peripheral pulses 2+ throughout GI normal to inspection, nondistended, normoactive bowel sounds, soft to palpation, non-tender and non-distended Back/Spine normal ROM Extremity normal to inspection, full ROM and no pedal edema Skin no rashes or lesions noted Neuro no focal motor deficits and no sensory deficits noted Speech: speech normal Psych affect normal Weight / BMI Weight Weight: 94.8 kg Body Mass Index (BMI) 39.4 ABG / Lab / Microbiology Data 11/09/23 07:15 11/09/23 07:15 Laboratory: Laboratory Results - last 24 hr 11/09/23 07:15: WBC 8.2, RBC 3.72 L, Hgb 10.5 L, Hct 33.0 L, MCV 88.7, MCH 28.2, MCHC 31.8 L, RDW Std Deviation 44.5 H, RDW Coeff of Shira 13.7, Plt Count 216, MPV 9.8, Sodium 134 L, Potassium 3.4 L, Chloride 104, Carbon Dioxide 11.0 L, Anion Gap 19 H, BUN 13, Creatinine 0.92, Estim Creat Clear Calc 55.55, Est GFR (MDRD) Af Amer 76, Est GFR (MDRD) Non-Af 63, BUN/Creatinine Ratio 14.1, Glucose 91, Calcium 8.9 Microbiology: Microbiology 11/06/23 12:38 Blood Culture (Wb) - Anticubital Left Blood Culture - Final Escherichia coli 11/06/23 12:55 Urine, Clean Catch Urine Culture - Final Presumptive E. coli 11/06/23 12:38 Mucosa - Nose SARS-CoV-2, Influenza & RSV (PCR) - Final D/C Instructions Discharge Diet: No restrictions Weight Bearing Status: Full weight bearing Meaningful Use Info Meaningful Use Diagnoses (Choose all that apply): None applicable Discharge Plan Admission Admit Date/Time: 11/06/23 14:05 Primary Reason for Your Visit: fevers/chills, pain with urination Attending Provider: Caleb Locke Primary Care Provider: SHIRLEY MCNULTY Consulting Providers: Bhavik Haque Instructions Additional Instructions / Restrictions: Complete antibiotic course for your UTI as noted below. Follow-up with physical therapy in [place] and follow-up with your primary doctors back [place] as needed. Discharge Orders/Prescriptions Prescriptions: New cefdinir 300 mg capsule 300 mg PO BID 6 Days Qty: 12 0RF Continued carvedilol 12.5 mg tablet 12.5 mg PO DAILY doxepin 10 mg capsule 10 mg PO QHS PRN (Reason: sleep) duloxetine 60 mg capsule,delayed release(DR/EC) 60 mg PO DAILY Patient Comments: TAKE 1 CAPSULE BY MOUTH DAILY gabapentin 800 mg tablet 800 mg PO Q12H oxycodone 10 mg tablet 10 mg PO Q4H PRN (Reason: pain) Patient Comments: TAKE 1 TABLET BY MOUTH EVERY 4 HOURS NEEDED FOR PAIN furosemide 20 mg tablet 20 mg PO DAILY pramipexole 0.25 mg tablet 0.25 mg PO BID Patient Comments: TAKE 1 TABLET BY MOUTH TWICE DAILY pantoprazole 40 mg tablet,delayed release (DR/EC) 40 mg PO QHS Patient Comments: TAKE ONE TABLET BY MOUTH EVERY NIGHT AT BEDTIME nystatin 100,000 unit/gram cream 1 applic TOPICAL BID Patient Comments: APPLY TOPICALLY TO THE AFFECTED AREA DAILY NEEDED methocarbamol 750 mg tablet 750 mg PO Q8H PRN (Reason: muscle spasm) Patient Comments: TAKE 1 TABLET BY MOUTH THREE TIMES DAILY NEEDED FOR MUSCLE SPASMS Referrals / Follow Up: SHIRLEY MCNULTY [[facility]] [facility] Doctor,Out of [Non-Staff] - Disposition Disposition (needs filled in before D/C Order can be placed): Home, Self Care Charges/Coding Visit Charges Inpatient E&M: 49345 Disch Hosp >30min
--- NOTE | 2023-11-09 11:30 | CASEMGMT ---
Patient has order for discharge. [facility] does not qualify for home oxygen. RN CM in to discuss needs at discharge. Patient denies needs or help at discharge. Patient had no further questions or concerns at this time.
[2023-11-09 12:35] VITALS: BP 118/68; PULSE 66; RESP 18; TEMP 37.1; O2SAT 97
--- NOTE | 2023-11-09 14:31 | PHA.DC.MR.R ---
Pharmacy [place] Med Reconciliation Pharmacy Service has performed discharge medication reconciliation for this patient. Medication education papers prepared but patient discharged when counseling was attempted. The patient's discharge medication list was reviewed for discrepancies and discrepancies were resolved. Medications at Discharge Home Medications carvedilol 12.5 mg tablet 12.5 mg PO DAILY 11/06/23 doxepin 10 mg capsule 10 mg PO QHS PRN sleep 11/06/23 duloxetine 60 mg capsule,delayed release 60 mg PO DAILY 11/06/23 furosemide 20 mg tablet 20 mg PO DAILY 11/06/23 gabapentin 800 mg tablet 800 mg PO Q12H 11/06/23 methocarbamol 750 mg tablet 750 mg PO Q8H PRN muscle spasm 11/06/23 nystatin 100,000 unit/gram topical cream 1 applic topical BID 11/06/23 oxycodone 10 mg tablet 10 mg PO Q4H PRN pain 11/06/23 pantoprazole 40 mg tablet,delayed release 40 mg PO QHS 11/06/23 pramipexole 0.25 mg tablet 0.25 mg PO BID 11/06/23 cefdinir 300 mg capsule 300 mg PO BID 6 days #12 caps 11/09/23
== END 2023-11-09 12:57 | disposition home or self-care (01) | DRG 689 ==
LOC: ED 13:57 → MS3 14:07
PROVIDERS: Admitting Provider Internal Medicine; Emergency Provider Emergency Medicine; Visit Provider Hospitalist
DX: N39.0 Urinary tract infection, site not specified (principal); A41.51 Sepsis due to Escherichia coli [E. coli]; N17.9 Acute kidney failure, unspecified; I10 Essential (primary) hypertension; G25.81 Restless legs syndrome; K21.9 Gastro-esophageal reflux disease without esophagitis; M19.90 Unspecified osteoarthritis, unspecified site; E66.9 Obesity, unspecified; G47.00 Insomnia, unspecified; Z87.891 Personal history of nicotine dependence; Z79.899 Other long term (current) drug therapy; Z68.39 Body mass index [BMI] 39.0-39.9, adult; R53.81 Other malaise; Z96.619 Presence of unspecified artificial shoulder joint; G89.29 Other chronic pain
CPT/HCPCS: 36415; 76770; 80048; 80053; 81001; 82248; 83036; 83605; 83735; 84100; 85025; 85027; 85610; 87040; 87077; 87086; 87088; 87186; 87631; 97162; 97166; 97530; 97535; 99284; J7030; J7040; J7050; J7120; A4216